=== PATIENT | female | born 1990 | race Caucasian/White ===

== ENCOUNTER 2019-10-22 10:14 | Emergency (ER) | payer OTHER, SELFPAY ==
[2019-10-22 10:35] VITALS: BP 152/85; PULSE 86; RESP 20; TEMP 36.7; O2SAT 100
--- NOTE | 2019-10-22 10:55 | ED.URI ---
HPI - URI/Sore Throat General Chief Complaint: Upper Respiratory Infection Stated Complaint: sore throat Time Seen by Provider: 10/22/19 10:55 Source: patient and family History of Present Illness HPI Narrative: Patient presents with nasal congestion sore throat and bilateral ear discomfort. Patient is taken Chloraseptic throat lozenges for pain. Denies any fever no cough no shortness of breath no chest pain no drooling and no trouble swallowing. Patient states his symptoms started yesterday and she had to leave work early today and requests a note for work. MD elicited complaint: sore throat and nasal congestion Related Data Allergies Allergy/AdvReac Type Severity Reaction Status Date / Time No Known Allergies Allergy Verified 10/22/19 10:50 Review of Systems Review of Systems: Narrative: CONSTITUTIONAL: Denies fever, chills, or sweats. EYES: Denies visual changes, redness, or discharge. ENT: Reports sore throat nasal congestion bilateral ear discomfort CARDIOVASCULAR: Denies chest pain, palpitations, or edema. RESPIRATORY: Denies cough or dyspnea. GASTROINTESTINAL: Denies abdominal pain, nausea, vomiting, or diarrhea. GENITOURINARY: Denies dysuria or hematuria. SKIN: Denies rash or itching. MUSCULOSKELETAL: Denies back pain, joint pain, or myalgia. NEUROLOGIC: Denies headache, numbness, or weakness. PSYCHIATRIC: Denies anxiety or depression. All systems reviewed & are unremarkable except as noted in HPI and below PMFSH Comments At time of signature, agree with nursing past medical, surgical, social and family history. There is no relevant family history pertinent to the presenting complaint Exam Narrative: Exam Narrative: GENERAL APPEARANCE: The patient is a well-developed, well-nourished in no acute distress. SKIN: Skin is warm and dry without erythema, swelling or exudate. There is good turgor. No tenting. HEAD: Atraumatic. Normocephalic. No temporal or scalp tenderness. EYES: Moist and bright. Sclera and conjunctivae normal. No discharge. PERRLA. Extraocular motions intact. Gross visual acuity intact. EARS: Pinna is normal shape and contour. Clear external auditory canals. TM pearly dwyer with good cone of light, no erythema or suppuration. Bilateral cerumen noted no gross hearing deficit. NOSE: pink, moist mucosa with good air movement. Clear rhinorrhea without nasal flaring. Septum midline. Mouth: moist mucous membranes. THROAT; mild erythema noted to posterior oropharynx with moderate postnasal drainage. Without exudate or ulceration.. Uvula midline. Normal movement of soft palate. NECK: Supple and nontender with full range of motion without discomfort. No meningeal signs. LUNGS: Equal and bilateral breath sounds without wheezes, rales or rhonchi. CHEST: The chest wall is without retractions or use of accessory muscles. HEART: Has a regular rate and rhythm without murmur, gallops, click or rub. ABDOMEN: Soft, nontender with positive active bowel sounds. No rebound tenderness. EXTREMITIES: Without cyanosis, clubbing or edema. Equal 2+ distal pulses and 2 second capillary refill noted. NEUROLOGIC: alert, active, developmentally normal for age. The patient moves all extremities with normal muscle strength. Normal muscle tone is noted. Normal coordination is noted. NO focal neurological findings noted. Course Vital Signs Vital signs: Vital Signs Temperature 36.7 C 10/22/19 10:35 Pulse Rate 86 10/22/19 10:35 Respiratory Rate 20 10/22/19 10:35 Blood Pressure 152/85 H 10/22/19 10:35 Pulse Oximetry 100 10/22/19 10:35 Temperature 36.7 C 10/22/19 10:35 Pulse Rate 86 10/22/19 10:35 Respiratory Rate 20 10/22/19 10:35 Blood Pressure 152/85 H 10/22/19 10:35 Pulse Oximetry 100 10/22/19 10:35 Please GALILEO schedule a followup visit with your personal physician for further evaluation and treatment. Including recheck and discussion of your blood pressure. If your symptoms persist, change or worsen signi
== END 2019-10-22 11:05 | disposition home or self-care (01) ==
PROVIDERS: Emergency Provider Nurse Practitioner Family
DX: J06.9 Acute upper respiratory infection, unspecified (principal); J02.9 Acute pharyngitis, unspecified
CPT/HCPCS: 87081; 87880; 99203; G0463

== ENCOUNTER 2020-02-15 14:11 | Emergency (ER) | payer OTHER, SELFPAY ==
[2020-02-15 14:16] VITALS: BP 125/57; PULSE 82; RESP 14; TEMP 36.4; O2SAT 99
--- NOTE | 2020-02-15 14:24 | ED.EAR ---
HPI - Ear Problem General Chief complaint: Ear Stated complaint: right ear cant hear Time Seen by Provider: 02/15/20 14:24 Source: patient and RN notes reviewed History of Present Illness HPI Narrative: Patient is a 29-year-old female who presents the urgent care with complaints of decreased hearing on the right. Patient states that she feels like she is talking in a tunnel . Patient has had cerumen impaction in the past and recently used peroxide and alcohol in the right ear without improvement. Patient states that the left is not as bad as the right . Patient states that after going swimming this weekend it seems to be worse. Denies any upper respiratory symptoms. Denies of any fever, chills, nausea, vomiting. No other acute complaints. No acute distress noted. Patient read the plan of care. Related Data Allergies Allergy/AdvReac Type Severity Reaction Status Date / Time No Known Allergies Allergy Verified 02/15/20 14:21 Review of Systems Review of Systems: Narrative: CONSTITUTIONAL: Denies fever, chills, or sweats. EYES: Denies visual changes, redness, or discharge. ENT: Reports of decreased hearing on the right CARDIOVASCULAR: Denies chest pain, palpitations, or edema. RESPIRATORY: Denies cough or dyspnea. GASTROINTESTINAL: Denies abdominal pain, nausea, vomiting, or diarrhea. GENITOURINARY: Denies dysuria or hematuria. SKIN: Denies rash or itching. MUSCULOSKELETAL: Denies back pain, joint pain, or myalgia. NEUROLOGIC: Denies headache, numbness, or weakness. All other systems reviewed are negative, except as documented in HPI. PMFSH Comments At the time of my signature, I reviewed and agree with the nursing past medical, surgical, social, and family history. There is no relevant family history pertinent to the patient complaint. Exam Narrative: Exam Narrative: GENERAL: This is a well-nourished, well-developed patient, in no apparent distress. HEAD: normocephalic, atraumatic. EYES: PERRL. Sclera clear/white. Vision is grossly intact. EARS: External ears normal, auditory canals clear and without drainage, unable to visualize bilateral TMs due to cerumen impaction. Hearing grossly intact. NOSE: External nose normal with no obvious nasal discharge, nares without redness, no rhinorrhea. THROAT: Mucous membranes moist NECK: Neck supple, non-tender without lymphadenopathy, masses or thyromegaly. SKIN: warm, intact with no suspicious lesions or rash, good texture and turgor. NEURO: awake, alert, and oriented to person, place and time. There were no obvious focal neurologic abnormalities. EXTREMITIES: No clubbing, cyanosis, or edema. Course Vital Signs Vital signs: Vital Signs Temperature 97.6 F 02/15/20 14:16 Pulse Rate 82 02/15/20 14:16 Respiratory Rate 14 02/15/20 14:16 Blood Pressure 125/57 L 02/15/20 14:16 Pulse Oximetry 99 02/15/20 14:16 Temperature 97.6 F 02/15/20 14:16 Pulse Rate 82 02/15/20 14:16 Respiratory Rate 14 02/15/20 14:16 Blood Pressure 125/57 L 02/15/20 14:16 Pulse Oximetry 99 02/15/20 14:16 Reviewed Procedures Ear Wax Removal Both Ears: Cerumenolytic Used: other (50-50 peroxide and normal saline) Results: Re-examined: some cerumen remains (Some cerumen remains on the right, cerumen removed completely from the left) TM Examination: TM(s) intact, normal appearance (Left) and other (Unable to completely visualize right TM) Patient Tolerated Procedure: well Complications: no problems Additional Comments: Patient tolerated well. Some cerumen remains to the right and unable to completely visualize the right TM. However canal is within normal limits. Left canal within normal limits with TM within normal limits. No foreign body with the exception of cerumen removed. Medical Decision Making MDM Narrative Medical decision making narrative: Advised the patient to use the antibiotic eardrops to the right ear as directed. Use Debrox to
== END 2020-02-15 15:06 | disposition home or self-care (01) ==
PROVIDERS: Emergency Provider Nurse Practitioner Family
DX: H61.23 Impacted cerumen, bilateral (principal)
CPT/HCPCS: 69209; 99213; G0463

== ENCOUNTER 2023-02-12 16:27 | Emergency (ER) | payer OTHER, SELFPAY ==
--- NOTE | ~2023-02-12 | XR_ITS ---
EXAM: XR ankle RT min 3V, XR foot RT min 3V DATE: 02/12/2023 17:06 (accession [id number]), 02/12/2023 17:07 (accession [id number]) HISTORY: INVERSION INJURY, LATERAL PAIN AND NUMBNESS . COMPARISON: None available. FINDINGS: Normal mineralization. No fracture or dislocation. No lytic or blastic lesion. Mild scatte red degenerative changes. Plantar and Achilles enthesopathy. No erosion or periosteal change. Soft ti ssues within normal limits. IMPRESSION: No acute osseous finding in the right ankle or right foot. Reviewed, dictated and finalized at location K. IMPRESSION: No acute osseous finding in the right ankle or right foot.
[2023-02-12 16:42] VITALS: BP 125/76; PULSE 88; RESP 19; TEMP 36.6; O2SAT 100
--- NOTE | 2023-02-12 16:51 | ED.LOWEXIN ---
HPI - Extremity Injury (Lower) General Chief Complaint: Extremity Injury, Lower Stated Complaint: right foot numb/rolled ankle Time Seen by Provider: 02/12/23 17:33 Source: patient and RN notes reviewed Mode of arrival: ambulatory Limitations: no limitations History of Present Illness HPI Narrative: 32-year-old female presents with concern for right foot and ankle injury. Reports on Friday she rolled the ankle. She reports she has been feeling a popping sensation, she has a bony deformity on the foot. She reports she has been walking on it but it hurts. She reports she has been taking ibuprofen which helps with her pain. Patient reports she had back surgery which affects the sensation in her foot at baseline, reports her toes are tingling. She also reports a tingling sensation at the bony deformity on the foot MD complaint: foot injury Related Data Home Medications Medication Instructions Recorded Confirmed amoxicillin 500 mg tablet 500 mg PO QID 02/12/23 02/12/23 Allergies Allergy/AdvReac Type Severity Reaction Status Date / Time No Known Allergies Allergy Verified 02/12/23 16:44 Review of Systems Review of Systems: CONSTITUTIONAL: Denies malaise, chills, sweats, or fever. SKIN: Denies rash or itching, open skin, laceration, abrasion, redness, warmth, swelling. MUSCULOSKELETAL: Reports right foot and ankle pain NEUROLOGIC: Denies numbness, weakness All systems reviewed & are unremarkable except as noted in HPI and below PMFSH Comments At time of signature, agree with nursing past medical, surgical, social and family history. There is no relevant family history pertinent to the presenting complaint Exam Narrative: GENERAL: Well-appearing, well-nourished, and in no acute distress. HEAD: Normocephalic, atraumatic. EYES: PERRLA, conjunctivae clear NECK: Supple. CHEST: Speaks in full sentences. No respiratory distress. HEART: Regular rate and rhythm. Normal and equal peripheral pulses. EXTREMITIES: Right ankle, foot, digits have grossly normal strength, grossly normal range of motion. Grossly normal sensation for patient's baseline, however patient does have a tingling sensation above the bony deformity on the dorsal foot. No edema or ecchymosis. 5/5 strength with digit flexion and extension. No point tenderness. Bony nodule noted to the dorsal lateral aspect of the foot. No open wounds, no skin tenting, no devitalized tissue or atrophy, no trophic changes, alignment normal, nearby joints and structures intact. Distal pulses palpable and equal bilaterally, skin warm, dry, pink. Capillary refill less than 3 seconds. SKIN: Warm, dry, no rash. NEURO: Alert and oriented x3. PSYCH: Normal mood and affect Course Course Emergency Course: Patient is aware of diagnosis, understands and agrees to treatment plan. Anticipatory guidance given. Patient agrees to follow-up as directed and is aware of reasons to seek care at the emergency department. Portions of this record may have been created with voice recognition software Level of Care: Express Care Visit Vital Signs Vital signs: Vital Signs Temperature 98 F 02/12/23 16:42 Pulse Rate 88 02/12/23 16:42 Respiratory Rate 19 02/12/23 16:42 Blood Pressure 125/76 02/12/23 16:42 Pulse Oximetry 100 02/12/23 16:42 Oxygen Delivery Room Air 02/12/23 16:42 Temperature 98 F 02/12/23 16:42 Pulse Rate 88 02/12/23 16:42 Respiratory Rate 19 02/12/23 16:42 Blood Pressure 125/76 02/12/23 16:42 Pulse Oximetry 100 02/12/23 16:42 Oxygen Delivery Room Air 02/12/23 16:42 Reviewed. MDM - Extremity Injury (Lower) MDM Narrative Medical decision making narrative: Patients injury and pain is consistent with musculoskeletal etiology. No signs of neurological or vascular compromise on exam. Compartments and tissues are soft without signs of compartment syndrome. Pain is felt appropriate for further evaluation on an outpatient basis.
== END 2023-02-12 17:33 | disposition home or self-care (01) ==
PROVIDERS: Emergency Provider Nurse Practitioner
DX: S93.601A Unspecified sprain of right foot, initial encounter (principal); X50.9XXA Other and unspecified overexertion or strenuous movements or postures, initial encounter
CPT/HCPCS: 73610; 73630; 99213; G0463

== ENCOUNTER 2024-04-17 11:22 | Emergency (ER) | payer BC, SELFPAY ==
[2024-04-17 11:30] VITALS: BP 122/65; PULSE 85; RESP 16; TEMP 36.2; O2SAT 100
--- NOTE | 2024-04-17 12:07 | ED.GENADULT ---
HPI - General Adult General Chief complaint: Wound/Laceration Stated complaint: Skin Sore Source: patient Mode of arrival: ambulatory Limitations: no limitations History of Present Illness HPI narrative: Patient presents for evaluation of redness to the right thigh. Symptom onset 3 days ago. She initially had a ?bump? in the affected area. She attempted to drain it unsuccessfully. She denies any fever, chills, nausea, vomiting, drainage from the area. She is diabetic and is adherent to metformin. Home BS in 180's. Related Data Home Medications Medication Instructions Recorded Confirmed dextroamphetamine-amphetamine ER PO 04/17/24 20 mg 24hr capsule,extend release metformin 500 mg tablet,extended mg PO 04/17/24 release 24 hr Allergies Allergy/AdvReac Type Severity Reaction Status Date / Time No Known Allergies Allergy Verified 04/17/24 11:30 Review of Systems Review of Systems: CONSTITUTIONAL: Denies fever, chills, or sweats. EYES: Denies visual changes, redness, or discharge. ENT: Denies rhinorrhea, congestion, sore throat, or otalgia. CARDIOVASCULAR: Denies chest pain, palpitations, or edema. RESPIRATORY: Denies cough or dyspnea. GASTROINTESTINAL: Denies abdominal pain, nausea, vomiting, or diarrhea. GENITOURINARY: Denies dysuria or hematuria. SKIN: Reports redness to the right thigh. MUSCULOSKELETAL: Denies back pain, joint pain, or myalgia. NEUROLOGIC: Denies headache, numbness, dizziness, or weakness. PSYCHIATRIC: Denies anxiety or depression. [facility] Past Medical History Medical History Diabetes Surgical History Surgical History No pertinent past surgical history Family History Family History Mother Family history non-contributory Social History Social History Smoking status: Current every day smoker Tobacco type: e-cigarettes/vaping Alcohol intake: never Substance use: never Additional living arrangements comments: lives with fiance Gender identity (if verbalized by the patient): Female Spiritual care concerns: No Exam Narrative: GENERAL: Well-appearing, well-nourished, and in no acute distress. HEAD: Normocephalic, atraumatic. EYES: PERRLA and EOMI. ENT: Nares clear, no rhinorrhea or epistaxis. Mucous membranes moist. Oropharynx without tonsillar hypertrophy exudate or other lesions. Bilateral TMs pearly spaulding nonbulging NECK: Supple. No adenopathy or masses. No carotid bruits or JVD CHEST: Clear to auscultation. No respiratory distress. No wheezes rales or rhonchi HEART: Regular rate and rhythm. No murmur heard. Normal peripheral pulses. ABDOMEN: Soft, nontender, nondistended, normal active bowel sounds. EXTREMITIES: Normal range of motion. No edema. SKIN: 5mm scabbed lesion to anterior aspect of right thigh with 13 x 25cm area of surrounding erythema. There is underlying induration without fluctuance NEURO: No focal deficits. Alert and oriented x3. PSYCH: Normal mood and affect. Course Course Emergency Course: This is a 33-year-old female who presented for evaluation of redness to the right thigh. Exam is consistent with cellulitis. Although the area measures 25 x 13 cm, area has mild erythema on I think this can be managed with oral abx. Will dc with bactrim and cephalexin. Monitor BS closely at home. Follow up with primary provider. Go to the ER for worsening symptoms. Pt in agreement with plan of care. Level of Care: Express Care Visit Vital Signs Vital signs: Vital Signs Temperature 36.2 C L 04/17/24 11:30 Pulse Rate 85 04/17/24 11:30 Respiratory Rate 16 04/17/24 11:30 Blood Pressure 122/65 04/17/24 11:30 Pulse Oximetry 100 04/17/24 11:30 Oxygen Delivery Room Air 04/17/24 11:30
== END 2024-04-17 11:52 | disposition home or self-care (01) ==
PROVIDERS: Emergency Provider Nurse Practitioner
DX: L03.115 Cellulitis of right lower limb (principal); F17.290 Nicotine dependence, other tobacco product, uncomplicated; E11.9 Type 2 diabetes mellitus without complications
CPT/HCPCS: 99213; G0463